=== PATIENT | male | born 1970 | race Asian ===

== ENCOUNTER 2018-10-30 22:00 | Emergency (ER) | payer OTHER ==
[2018-10-30 22:13] VITALS: Wt 83.5 kg
[2018-10-31 01:26] VITALS: BP 116/79
== END 2018-10-31 01:26 | disposition home or self-care (01) ==
LOC: ED 22:00
DX: S61.214A Laceration without foreign body of right ring finger without damage to nail, initial encounter (principal); F17.210 Nicotine dependence, cigarettes, uncomplicated; W54.0XXA Bitten by dog, initial encounter; Y93.89 Activity, other specified; Y92.89 Other specified places as the place of occurrence of the external cause; Y99.8 Other external cause status
CPT/HCPCS: 90715; J2001